=== PATIENT | female | born 1950 ===

== ENCOUNTER 2018-11-12 07:00 | Day surgery (SDC) | payer OTHER ==
[~2018-11-12] VITALS: Ht 162.6 cm; Wt 74.8 kg
[2018-11-12] MEDS ORDERED: ATENOLOL-CHLORT1 TAB PO (14:18)
[2018-11-12] MEDS ORDERED: LISINOPRIL20 MG PO (14:18)
[2018-11-12] MEDS ORDERED: VYTORIN 10-101 EACH PO (14:19)
--- NOTE | 2018-11-12 14:19 | NUR ---
PT ALERTA Y ORIENTADA X 3, REFIERE DOLOR EN RLQ A PALPACION DESDE CHALO.
--- NOTE | 2018-11-12 15:22 | NUR ---
EVALUA PACIENTE Y ORDENA TRATAMIENTO MEDICO DEL CUAL SE ORIENTA PACIENTE,LA MISMA REFIERE COMPRENDER. SE COLECTAN MUESTRAS DE LABORATORIOS [facility] ORDEN MEDICA BAJO MEDIDAS ASEPTICAS;SON ROTULADAS Y ENVIADAS PARA ANALISIS. SE ADMINISTRAN MEDICAMENTOS [place] ORDEN MEDICA SIGUIENDO MEDIDAS ASEPTICAS. PACIENTE NO PRESENTA REACCION ADVERSA A MEDICAMENTOS. SE NOTIFICA ESTUDIO CT A PERSONAL DE TUR[place].
[2018-11-13] MEDS ORDERED: ATENOLOL-CHLORT1 TAB PO (11:16)
[2018-11-13] MEDS ORDERED: VYTORIN 10-101 EACH PO (11:17)
[2018-11-13] MEDS ORDERED: LISINOPRIL20 MG PO (11:17)
== END 2018-11-13 08:00 | disposition home or self-care (01) ==
LOC: CIR.AMB 07:00 → ER 14:14 → SEC-K 17:45 → ER 17:45 → SURG 17:45 → EDSTATUS 18:00 → SEC-K 21:59 → SURG 21:59 → CIR.AMB 11-13 08:00 → SURG 11-13 11:58
DX: K35.30 Acute appendicitis with localized peritonitis, without perforation or gangrene (principal); K57.32 Diverticulitis of large intestine without perforation or abscess without bleeding; I11.9 Hypertensive heart disease without heart failure; Q63.2 Ectopic kidney